=== PATIENT | female | born 2000 | race Caucasian/White ===

== ENCOUNTER 2022-02-19 08:33 | Emergency (ER) | payer MEDICAID ==
[2022-02-19 09:19] LABS: BILIRUBIN,URINE NEGATIVE (NEGATIVE); GLUCOSE, URINE (UA) NEGATIVE (NEGATIVE); KETONES,URINE (UA) NEGATIVE (NEGATIVE); LEUKOCYTE ESTERASE, URINE SMALL (NEGATIVE); NITRITE,URINE NEGATIVE (NEGATIVE); OCCULT BLOOD,URINE TRACE-INTA (NEGATIVE); PROTEIN,URINE NEGATIVE (NEGATIVE); UROBILINOGEN,URINE 0.2 (NORMAL) E.U./dL (NORMAL)
[2022-02-19 09:22] LABS: CLARITY,URINE HAZY (CLEAR); HCG UR QUAL NEGATIVE
[2022-02-19 09:30] LABS: BASOPHILS % (AUTO) 0.1 %; EOSINOPHILS # (AUTO) 0.1 10^3/uL (0.0-0.7); EOSINOPHILS % (AUTO) 0.6 %; HCT - HEMATOCRIT 38.7 % (37.0-47.0); HGB - HEMOGLOBIN 12.8 g/dL (12.0-16.0); LYMPHOCYTES # (AUTO) 1.3 10^3/uL (1.5-3.5); LYMPHOCYTES % (AUTO) 13.9 %; MEAN CORPUSCULAR HEMOGLOBIN 27.3 pg (27.0-31.0); MEAN CORPUSCULAR HGB CONC 33.1 g/dL (32.0-36.0); MEAN CORPUSCULAR VOLUME 82.5 fL (81.0-99.0); MEAN PLATELET VOLUME 10.5 fL (7.9-10.8); MONOCYTES # (AUTO) 0.8 10^3/uL (0.0-1.0); NEUTROPHILS # (AUTO) 7.1 10^3/uL (1.5-6.6); NEUTROPHILS % (AUTO) 76.2 %; PLT - PLATELET COUNT 376 10^3/uL (130-450); RED BLOOD COUNT 4.69 10^6/uL (4.20-5.40); RED CELL DISTRIBUTION WIDTH 13.7 % (12.0-15.0); WHITE BLOOD COUNT 9.4 x10^3/uL (4.8-10.8)
[2022-02-19 09:34] LABS: BACTERIA,URINE Few /HPF (None Seen); RBC,URINE 0-5 /HPF (0-5); SQUAMOUS EPITHELIAL CELL,UR MOD Squamous (<= Few)
--- NOTE | 2022-02-19 09:49 | ED Physician Documentation ---
PD HPI ABD PAIN - Stated complaint Stated Complaint: BACK PX/FEMALE - Chief complaint Chief Complaint: Back Pain - History obtained from History obtained from: Patient, Friend - History of Present Illness Timing - onset: How many days ago (3) Timing - duration: Hours (2) Timing - details: Abrupt onset, Intermittant Quality: Cramping, Sharp, Pain Location: LUQ Radiation: Left flank Improved by: Position Worsened by: Position Associated symptoms: Constipation (usual is every other day). No: Fever, Nausea, Vomiting, Hematemesis, Diarrhea, Melena, Hematochezia, Dysuria, Hematuria, Chest pain, Dizzy, Near syncope / syncope, Loss of appetite, Weight loss, Vaginal bleeding, Vaginal dc, Other Similar symptoms before: Has not had sx before Recently seen: Not recently seen - Additional information Additional information: 21-year-old female with a 3-day history of left upper quadrant pain that is sharp and intermittent. She has had pain lasting approximately 30 minutes. She has a specific area that hurts. She has no modifying factors. PD PAST MEDICAL HISTORY - Past Medical History Past Medical History: No - Allergies Allergies/Adverse Reactions: Allergies Allergy/AdvReac Type Severity Reaction Status Date / Time No Known Drug Allergies Allergy Verified 02/19/22 08:41 - Social History Does the pt smoke?: No Smoking Status: Never smoker Does the pt drink ETOH?: No PD ED PE NORMAL - Vitals Vital signs reviewed: Yes (tachy and hypertensive ) - General General: Alert and oriented X 3, Well developed/nourished - HEENT HEENT: Atraumatic, PERRL, EOMI - Neck Neck: Supple, no meningeal sign, No bony TTP - Cardiac Cardiac: RRR, No murmur - Respiratory Respiratory: No respiratory distress - Abdomen Abdomen: Normal bowel sounds, Soft, Non distended, No organomegaly, Other (palpation of the left upper quadrant resulted in sudden resolution of the patients pain) - Back Back: No CVA TTP, No spinal TTP - Derm Derm: Normal color, Warm and dry, No rash - Extremities Extremities: No deformity, No edema - Neuro Neuro: Alert and oriented X 3, pc analyst 2-12 intact, No motor deficit, No sensory deficit, Normal speech Eye Opening: Spontaneous Motor: Obeys Commands Verbal: Oriented GCS Score: 15 - Psych Psych: Normal mood, Normal affect Results - Vitals Vitals: Vital Signs - 24 hr 02/19/22 02/19/22 08:38 11:12 Temperature 36.1 C L Heart Rate 110 H 99 Respiratory 18 18 Rate Blood Pressure 144/77 H 132/69 H O2 Saturation 100 100 Oxygen O2 Source Room air - Labs Labs: Laboratory Tests 02/19/22 02/19/22 02/19/22 09:06 09:25 09:25 WBC 9.4 RBC 4.69 Hgb 12.8 Hct 38.7 MCV 82.5 MCH 27.3 MCHC 33.1 RDW 13.7 Plt Count 376 MPV 10.5 Neut # (Auto) 7.1 H Lymph # (Auto) 1.3 L [place] # (Auto) 0.8 Eos # (Auto) 0.1 Baso # (Auto) 0.0 Absolute Nucleated RBC 0.00 Nucleated RBC % 0.0 Sodium 140 Potassium 3.9 Chloride 107 Carbon Dioxide 23 Anion Gap 10.0 BUN 8 Creatinine 0.7 Estimated GFR (MDRD) 107 Glucose 115 H Calcium 9.6 Total Bilirubin 0.6 AST 24 ALT 27 Alkaline Phosphatase 100 Total Protein 7.8 Albumin 4.5 Globulin 3.3 Albumin/Globulin Ratio 1.4 Lipase 35 Urine Color LT. YELLOW Urine Clarity HAZY Urine pH 6.0 Ur Specific [place] <=1.005 Urine Protein NEGATIVE Urine Glucose (UA) NEGATIVE Urine Ketones NEGATIVE Urine Occult Blood TRACE-INTA Urine Nitrite NEGATIVE Urine Bilirubin NEGATIVE Urine Urobilinogen 0.2 (NORMAL) Ur Leukocyte Esterase SMALL H Urine RBC 0-5 Urine WBC 4-5 Ur Squamous Epith Cells MOD Squamous H Urine Bacteria Few Ur Microscopic Review INDICATED Urine Culture Comments NOT INDICATED Urine HCG, Qual NEGATIVE - Rads (name of study) CT ab/pel Radiology: Prelim report reviewed (Impression: 1. No urinary stone or hydroureteral nephrosis. Mild left urothelial thickening is present. This finding can be seen in the setting of urinary tract infection or a recently passed stone. Correlation with urinalysis may be helpful.), EMP read indepedently, See rad report PD MEDICAL DECISION MAKING - ED course Complexity details: reviewed old records, reviewed results, re-evaluated patient, considered differential, d/w patient, d/w family ED course: 21-year-old female with left upper quadrant pain that has been intermittent and severe at time presents to the emergency department concerned about the possibility of a kidney stone. On examination she is nontender and indicates that she felt that on palpation her pain resolved. We did do CT scan of the abdomen pelvis which did demonstrate significant stool throughout the colon including the hepatic and splenic flexures. I suspect this may be the precipitant of the patient's pain. Departure - Departure Disposition: Home, Self Care Clinical Impression: Constipation Qualifiers: Constipation type: unspecified constipation type Qualified Code(s): K59.00 - Constipation, unspecified Condition: Stable Instructions: ED Constipation Follow-Up: Maria Del Rosario Junior PA-C [Provider Admit Priv/Credential] - Comments: Isidra today it looks like the pain you are having is likely related to constipation. My recommendation is to take a dose of milk of magnesia when you get home and expect results within 6 to 8 hours. If you do not have results take a second dose. I have given you the name of a primary care doctor for foll ow-up if needed. Discharge Date/Time: 02/19/22 11:13
[2022-02-19 09:51] LABS: ALBUMIN 4.5 g/dL (3.2-5.5); ALBUMIN/GLOBULIN RATIO 1.4 (1.0-2.2); BILIRUBIN,TOTAL 0.6 mg/dL (0.2-1.0); CALCIUM 9.6 mg/dL (8.5-10.3); CREATININE 0.7 mg/dL (0.4-1.0); POTASSIUM 3.9 mmol/L (3.5-5.0); TOTAL PROTEIN 7.8 g/dL (6.7-8.2)
[2022-02-19] MEDS ORDERED: MAGNESIUM HYDROXIDE 2,400 MG/30 ML UDC PO STA (10:00)
--- NOTE | 2022-02-19 10:52 | CT Report ---
PROCEDURE: Abdomen/Pelvis WO INDICATIONS: L flank pain TECHNIQUE: Noncontrast 5 mm thick sections acquired from the diaphragms to the symphysis. 5 mm coronal and sagi ttal reformats were then performed. For radiation dose reduction, the following was used: automated exposure control, adjustment of mA and/or kV according to patient size. COMPARISON: None. FINDINGS: Image quality: Excellent. Visualized lung bases: No pleural effusion. Liver and biliary tree: Unremarkable noncontrast appearance. Gallbladder: No radiopaque cholelithiasis. Spleen: Unremarkable noncontrast appearance. Pancreas: Unremarkable noncontrast appearance. Adrenal glands: Unremarkable noncontrast appearance. Kidneys and ureters: No urinary stone or hydroureteronephrosis. Mild urothelial thickening of the pro ximal left ureter. Gastrointestinal tract: No bowel obstruction. Normal appendix. Peritoneal cavity: No free air or free fluid. Bladder: Unremarkable noncontrast appearance. Pelvic organs: Unremarkable noncontrast CT appearance. Vasculature: No abdominal aortic aneurysm. Bones: No significant abnormality. IMPRESSION: 1. No urinary stone or hydroureteronephrosis. 2. Mild left urothelial thickening is present. This finding can be seen in the setting of urinary tra ct infection or a recently passed stone. Correlation with urinalysis may be helpful. Reviewed by: Jonel Fonseca MD on 02/19/2022 10:50 AM PDT Approved by: Jonel Fonseca MD on 02/19/2022 10:50 AM PDT Station ID: [id number]
[2022-02-19] MEDS ORDERED: MAGNESIUM HYDROXIDE 2,400 MG/30 ML UDC ONE (11:11)
[2022-02-19 11:13] VITALS: BP 132/69
== END 2022-02-19 11:13 | disposition home or self-care (01) ==
LOC: ED 08:33
DX: K59.00 Constipation, unspecified (principal)
CPT/HCPCS: 36415; 74176; 80053; 81001; 81025; 83690; 85025; 99281; 99284; A9270; 81003; 87086

== ENCOUNTER 2023-04-10 10:05 | Emergency (ER) | payer MEDICAID ==
[2023-04-10 11:23] LABS: B. PARAPERTUSSIS- RESP PCR PAN NOT DETECTED; B. PERTUSSIS- RESP PCR PANEL NOT DETECTED; C. PNEUMONIAE- RESP PCR PANEL NOT DETECTED; CORONAVIRUS 229E-RESP PCR NOT DETECTED; CORONAVIRUS HKU1-RESP PCR NOT DETECTED; CORONAVIRUS NL63-RESP PCR NOT DETECTED; CORONAVIRUS OC43-RESP PCR NOT DETECTED; HUMAN METAPNEUMOVIRUS NOT DETECTED; INFLUENZA A- RESP PCR PANEL NOT DETECTED; INFLUENZA B - RESP PCR PANEL NOT DETECTED; M. PNEUMONIAE- RESP PCR PANEL NOT DETECTED; PARAINFLUENZA VIRUS 1 NOT DETECTED; PARAINFLUENZA VIRUS 2 NOT DETECTED; PARAINFLUENZA VIRUS 3 NOT DETECTED; PARAINFLUENZA VIRUS 4 NOT DETECTED; RHINOVIRUS/ENTEROVIRUS NOT DETECTED; RSV- RESP PCR PANEL NOT DETECTED; SARS-CoV-2 -RESP PCR PANEL NOT DETECTED
[2023-04-10] MEDS ORDERED: KETOROLAC 30 MG/ML VIAL IM STA (11:35)
[2023-04-10] MEDS ORDERED: PROCHLORPERAZINE 10 MG/2 ML VIAL IM STA (11:35)
--- NOTE | 2023-04-10 11:38 | ED Physician Documentation ---
History of Present Illness - Stated complaint Stated Complaint: NAUSEA,WEBER,FATIGUE - Chief complaint Chief Complaint: General - Additonal information Additional information: 22-year-old female presents emergency department for evaluation of 4 days generalized malaise, fatigue sinus congestion and pressure. No cough. Subjective fevers. She has vomited once. Today she says she has had a migraine this lasted 4 days unresponsive to Tylenol, Motrin and Excedrin at home. No loss of vision, falls, trauma. Headache is similar to others in the past. denies urinary symptoms Review of Systems Constitutional: reports: Fever Eyes: denies: Loss of vision Nose: reports: Congestion Throat: denies: Sore throat Cardiac: denies: Chest pain / pressure, Palpitations Respiratory: denies: Dyspnea, Cough GI: reports: Vomiting. denies: Abdominal Pain : reports: Reviewed and negative Skin: reports: Reviewed and negative PD PAST MEDICAL HISTORY - Past Medical History Past Medical History: Yes Neuro: Migraines - Past Surgical History Past Surgical History: No - Allergies Allergies/Adverse Reactions: Allergies Allergy/AdvReac Type Severity Reaction Status Date / Time No Known Drug Allergies Allergy Verified 04/10/23 10:24 - Social History Does the pt smoke?: No Smoking Status: Never smoker Does the pt drink ETOH?: No Does the pt have substance abuse?: No PD ED PE NORMAL - General General: Alert and oriented X 3, No acute distress, Well developed/nourished - HEENT HEENT: Atraumatic, EOMI, Ears normal, Moist mucous membranes, Pharynx benign - Neck Neck: Supple, no meningeal sign - Cardiac Cardiac: RRR, No murmur - Respiratory Respiratory: No respiratory distress, Clear bilaterally - Abdomen Abdomen: Normal bowel sounds - Derm Derm: Warm and dry - Extremities Extremities: No deformity - Neuro Neuro: Alert and oriented X 3 Eye Opening: Spontaneous Motor: Obeys Commands Verbal: Oriented GCS Score: 15 Results - Vitals Vitals: Vital Signs - 24 hr 04/10/23 10:20 Temperature 36.0 C L Heart Rate 100 Respiratory 16 Rate Blood Pressure 136/81 H O2 Saturation 98 Oxygen O2 Source Room air - Labs Labs: Laboratory Tests 04/10/23 10:18 Nasal Adenovirus (PCR) NOT DETECTED Nasal B. parapertussis DNA (PCR) NOT DETECTED Nasal Coronavir 229E PCR NOT DETECTED Nasal Coronavir HKU1 PCR NOT DETECTED Nasal Coronavir NL63 PCR NOT DETECTED Nasal Coronavir OC43 PCR NOT DETECTED Nasal Enterovir/Rhinovir PCR NOT DETECTED Nasal Influenza B PCR NOT DETECTED Nasal Influenza A PCR NOT DETECTED Nasal Parainfluen 1 PCR NOT DETECTED Nasal Parainfluen 2 PCR NOT DETECTED Nasal Parainfluen 3 PCR NOT DETECTED Nasal Parainfluen 4 PCR NOT DETECTED Nasal RSV (PCR) NOT DETECTED Nasal B.pertussis DNA PCR NOT DETECTED Nasal C.pneumoniae (PCR) NOT DETECTED Bubba Human Metapneumo PCR NOT DETECTED Nasal M.pneumoniae (PCR) NOT DETECTED Nasal SARS-CoV-2 (PCR) NOT DETECTED PD Medical Decision Making - ED course Complexity details: reviewed results, re-evaluated patient, d/w patient ED course: Here with several days of malaise, fatigue and now migraine headache that has not resolved over the last 4 days. Positive vomiting this a.m. She is also reporting sinus congestion. ENT exam was entirely unremarkable with no evidence suggest acute bacterial sinusitis or acute otitis media. Her pulmonary auscultation was unremarkable. No hypoxia. Vital signs normal for age. Respiratory PCR panel was negative. I did administer the patient 30 of Toradol IM as well as 5 of Compazine also IM and on reevaluation the patient reports improved nausea and full resolution of the headache. Clinically I am not suspicious for meningitis, encephalitis or subarachnoid hemorrhage. She is discharged home in stable condition with usual emergent return precautions discussed for worsening symptoms. Limited prescription of Zofran is Levbid for nausea Departure - Departure Disposition: 01 Home, Self Care Clinical Impression: Congestion of paranasal sinus Migraine Qualifiers: Migraine type: unspecified Status migrainosus presence: without status migrainosus Intractability: not intractable Qualified Code(s): G43.909 - Migraine, unspecified, not intractable, without status migrainosus Condition: Stable Record reviewed to determine appropriate education?: Yes Comments: Though your PCR testing was negative I still suspect that you have a mild virus causing the congestion and worsening migraine. We did give you Compazine and Toradol here in the ER and on reevaluation your headache seems to have fully resolved. Over the course of the weekend I would recommend that you drink plenty of fluids and get lots of rest. I am prescribing some Zofran to help with nausea. You can try and manage the sinus congestion by taking a dose or 2 of Sudafed or even Afrin nasal spray. Be sure not to use the Afrin nasal spray for longer than 3 days to prevent rebound congestion. I expect her symptoms to be getting better over the next few days. Return immediately to the ER for fevers, uncontrolled vomiting severe abdominal pain. Forms: PCP List
[2023-04-10 12:42] VITALS: BP 126/100; O2SAT 100
== END 2023-04-10 12:36 | disposition home or self-care (01) ==
LOC: ED 10:05
DX: G43.909 Migraine, unspecified, not intractable, without status migrainosus (principal); R09.81 Nasal congestion; Z20.822 Contact with and (suspected) exposure to COVID-19
CPT/HCPCS: 87633; 96372; 99283